=== PATIENT | male | born 1990 | race Hispanic/Latino ===

== ENCOUNTER → 2023-02-20 12:22 | Outpatient (CLI) | payer OTHER, SELFPAY ==
--- NOTE | 2023-02-20 | DI.RAD.S_ITS ---
PROCEDURE: XR FEMUR RT MIN 2V INDICATIONS: Other specified arthritis, unspecified site TECHNIQUE: 2 views of the femur were acquired. COMPARISON: [facility], CR, XR FEMUR LT MIN 2V, 02/20/2023, 12:36. FINDINGS: Bones: No fractures or dislocations. No suspicious bony lesions. Soft tissues: No suspicious soft tissue calcifications or masses. IMPRESSION: No acute osseous abnormality. Dictated by: Atif Lackey M.D. on 02/20/2023 at 16:13 Approved by: Atif Lackey M.D. on 02/20/2023 at 16:14
--- NOTE | 2023-02-20 | DI.RAD.S_ITS ---
PROCEDURE: XR FEMUR LT MIN 2V INDICATIONS: Other specified arthritis, unspecified site TECHNIQUE: To views of the femur were acquired. COMPARISON: [facility], CR, XR FEMUR RT MIN 2V, 02/20/2023, 12:43. FINDINGS: Bones: No fractures or dislocations. No suspicious bony lesions. Soft tissues: No suspicious soft tissue calcifications or masses. IMPRESSION: No acute osseous abnormality. Dictated by: Atif Lackey M.D. on 02/20/2023 at 16:12 Approved by: Atif Lackey M.D. on 02/20/2023 at 16:13
== END ==
PROVIDERS: Referring Provider Chiropractor; Visit Provider Chiropractor
DX: M13.80 Other specified arthritis, unspecified site (principal)
CPT/HCPCS: 73552